=== PATIENT | female | born 1980 | race Caucasian/White ===

== ENCOUNTER → 2016-09-20 | Outpatient (CLI) | payer OTHER ==
--- NOTE | 2016-09-20 14:37 | KCIC ---
Examination: Two views of the chest HISTORY Bronchitis cough for 4 weeks: COMPARISON None available Findings: The cardiomediastinal silhouette grossly appears unremarkable. There is mild prominence of bilateral perihilar bronchovascular markings could be due to bronchitis. No evidence of consolidation. IMPRESSION Mild prominence of bilateral perihilar bronchovascular markings likely bronchitis. Electronically signed by: Nura Durán (Sep 20, 2016 14:35:57)
== END | disposition home or self-care (01) ==
LOC: KCIC 09:37
PROVIDERS: ATTEND Nurse Practitioner Family
DX: J40 Bronchitis, not specified as acute or chronic (principal); R05 Cough; R61 Generalized hyperhidrosis; R53.83 Other fatigue
CPT/HCPCS: 71020